=== PATIENT | female | born 1940 | race Two or more races ===

== ENCOUNTER 2018-01-19 14:32 | Emergency (ER) | payer OTHER ==
[~2018-01-19] VITALS: Ht 160 cm; Wt 73.0 kg
[2018-01-19 14:53] VITALS: BP 149/79
== END 2018-01-19 17:29 | disposition home or self-care (01) ==
LOC: ER 14:32
DX: J40 Bronchitis, not specified as acute or chronic (principal); E11.9 Type 2 diabetes mellitus without complications
CPT/HCPCS: 71046

== ENCOUNTER 2019-04-25 20:15 | Emergency (ER) | payer OTHER ==
[~2019-04-25] VITALS: Ht 157.5 cm; Wt 70.3 kg
[2019-04-25 20:36] VITALS: BP 162/85
[2019-04-26] MEDS ORDERED: ACETAMINOPHEN/CODEINE#3 (300/30mg) TAB PO ONE (06:00)
== END 2019-04-26 06:05 | disposition home or self-care (01) ==
LOC: ER 20:19
DX: S52.572A Other intraarticular fracture of lower end of left radius, initial encounter for closed fracture (principal); S52.612A Displaced fracture of left ulna styloid process, initial encounter for closed fracture; E11.9 Type 2 diabetes mellitus without complications; E78.5 Hyperlipidemia, unspecified; Z86.39 Personal history of other endocrine, nutritional and metabolic disease; W19.XXXA Unspecified fall, initial encounter; Y93.89 Activity, other specified; Y92.89 Other specified places as the place of occurrence of the external cause; Y99.8 Other external cause status
CPT/HCPCS: 29125; 72220; 73110